=== PATIENT | female | born 1995 | race African-American/Black ===

== ENCOUNTER 2017-03-12 18:53 | Emergency (ER) | payer OTHER ==
[2017-03-12 19:00] VITALS: BP 123/60; PULSE 60; TEMP 97.8; BMI 40.3
--- NOTE | 2017-03-12 21:40 | PDOC ---
History of Present Illness - General Chief Complaint: Injury Stated Complaint: KNEE INJURY Time Seen by Provider: 03/12/17 20:21 - History of Present Illness Initial Comments: 03/12/17 21:21 CHIEF COMPLAINT: knee pain HISTORY OF PRESENT ILLNESS: 21 yo F with no significant PMH presents to [facility] with pain to b/l knees s/p fall at work. Patient reports she was working at [employer] when she tripped on a bucket and fell onto her knees. PAST MEDICAL HISTORY: Denies past medical history FAMILY HISTORY: Denies SOCIAL HISTORY: Denies tobacco, alcohol, illicit drug use. SURGICAL HISTORY: Denies ALLERGIES: No known drug allergies REVIEW OF SYSTEMS General/Constitutional: Denies fever or chills. Denies weakness, weight change. HEENT: Denies change in vision. Denies ear pain or discharge. Denies sore throat. Cardiovascular: Denies chest pain or shortness of breath. Respiratory: Denies cough, wheezing, or hemoptysis. Gastrointestinal: Denies nausea, vomiting, diarrhea or constipation. Denies rectal bleeding. Genitourinary: Denies dysuria, frequency, or change in urination. Musculoskeletal: Knee pain b/l, L greater than R. Skin and breasts: Denies rash or easy bruising. PHYSICAL EXAM General Appearance: Well-appearing, appropriately dressed. No apparent distress , no intoxication. HEENT: EOMI, PERRLA, normal ENT inspection, normal voice, TMs normal, pharynx normal. No conjunctival pallor. No photophobia, scleral icterus. Neck: Supple. Trachea midline. No tenderness, rigidity, carotid bruit, stridor , lymphadenopathy, or thyromegaly. Respiratory/Chest: Lungs CTAB. No shortness of breath, chest tenderness, respiratory distress, accessory muscle use. No crackles, rales, rhonchi, stridor , wheezing, dullness Cardiovascular: RRR. S1, S2. No JVD, murmur, bradycardia, tachycardia. Vascular Pulses: Dorsalis-Pedis (R): 2+, Dorsalis-Pedis (L): 2+ Gastrointestinal/Abdominal: Normal bowel sounds. Abdomen soft, non-distended. No tenderness or rebound tenderness. No organomegaly, pulsatile mass, guarding , hernia, hepatomegaly, splenomegaly. Lymphatic: No adenopathy, tenderness. Musculoskeletal/Extremities: Anterior swelling to L knee. Normal inspection. FROM of all extremities, normal capillary refill. Pelvis Stable. No CVA tenderness. No tenderness to extremities, pedal edema, swelling, erythema or deformity. Integumentary: Appropriate color, dry, warm. No cyanosis, erythema, jaundice or rash Neurologic: buncher machine II-XII intact. Fully oriented, alert. Appropriate mood/affect. Motor strength 5/5. No appreciable EOM palsy, facial droop or sensory deficit. 03/12/17 22:03 Past History - Past Medical History Allergies/Adverse Reactions: Allergies Allergy/AdvReac Type Severity Reaction Status Date / Time No Known Allergies Allergy Verified 03/12/17 18:59 Home Medications: Ambulatory Orders Diclofenac Sodium 50 mg PO TID PRN #21 tablet. 03/12/17 Other medical history: denies - Suicide/Smoking/Psychosocial Hx Smoking History: Never smoked Information on smoking cessation initiated: No Hx Alcohol Use: No Drug/Substance Use Hx: No Substance Use Type: None *Physical Exam - Vital Signs Last Vital Signs Temp Pulse Resp BP Pulse Ox 97.8 F 60 19 123/60 98 03/12/17 18:56 03/12/17 18:56 03/12/17 18:56 03/12/17 18:56 03/12/17 18:56 ED Treatment Course - ADDITIONAL ORDERS Additional order review: Laboratory Results 03/12/17 20:30 Urine HCG, Qual Negative - RADIOLOGY Radiology Studies Ordered: Category Date Time Status KNEE 3 POS-LEFT [RAD] Stat Radiology 03/12/17 20:59 Ordered Medical Decision Making - Medical Decision Making 03/12/17 22:05 21 yo F with no significant PMH presents to [facility] with pain to b/l knees s/ p fall at work. -B/l knee x-ray -60 mg Toradol IM X-rays negative for fracture 03/12/17 22:16 f/u with ortho *DC/Admit/Observation/Transfer Diagnosis at time of Disposition: Knee injury Qualifiers: Encounter type: initial encounter Laterality: left Qualified Code(s): S89.92XA - Unspecified injury of left lower leg, initial encounter; S89.92XA - Unspecified injury of left lower leg, initial encounter - Discharge Dispostion Disposition: HOME Condition at time of disposition: Stable Admit: No - Prescriptions Prescriptions: Diclofenac Sodium 50 mg PO TID PRN #21 tablet.dr VALERO Reason: Pain - Referrals Referrals: Jaleel Capone MD [Staff Physician] - - Patient Instructions Printed Discharge Instructions: DI for Knee Pain Additional Instructions: Please take medications as prescribed. As discussed, if your pain persists for more than 3-5 days, please follow up with orthopedics for possible MRI of your knee and/or physical therapy. If you develop any loss of sensation to your legs , increased swelling or pain, or any new or worsening symptoms, please return to the ER. - Post Discharge Activity Forms/Work/School Notes: Back to Work
[2017-03-12] MEDS ORDERED: KETOROLAC TROMETHAMINE 60 MG/2 ML VIAL IM ONE (21:49)
[2017-03-12] MEDS ORDERED: KETOROLAC TROMETHAMINE 60 MG/2 ML VIAL ONE (22:01)
== END 2017-03-12 22:22 | disposition home or self-care (01) ==
LOC: JERFT 18:53
CPT/HCPCS: 73560-TC-RT; 73562-TC-LT; 84703; 99281-25